=== PATIENT | female | born 1950 | race Hispanic/Latino ===

== ENCOUNTER → 2018-08-15 | Outpatient (CLI) | payer OTHER | END | disposition home or self-care (01) | LOC: OIH 09:10 | PROVIDERS: ATTEND Internal Medicine | DX: I10 Essential (primary) hypertension (principal); I70.0 Atherosclerosis of aorta; M47.815 Spondylosis without myelopathy or radiculopathy, thoracolumbar region | CPT/HCPCS: 71046 ==

== ENCOUNTER → 2019-08-06 | Outpatient (CLI) | payer OTHER | END | disposition home or self-care (01) | LOC: OIH 08:23 | PROVIDERS: ATTEND Internal Medicine | DX: M24.812 Other specific joint derangements of left shoulder, not elsewhere classified (principal) | CPT/HCPCS: 73030 ==

== ENCOUNTER → 2025-02-09 | Outpatient (CLI) | payer OTHER ==
--- NOTE | 2025-02-09 17:16 | HMCIMG ---
CLINICAL INFORMATION Left knee pain COMPARISON None. TECHNIQUE 2 view left knee FINDINGS Bones: No acute fracture. No destructive osseous abnormality. Alignment: Normal. Joints: Mild tricompartmental degenerative changes of osteoarthritis are present. Effusion: None Soft Tissues: Normal. IMPRESSION Mild tricompartmental osteoarthritis. No acute bony findings. /[place]
== END | disposition home or self-care (01) ==
LOC: RAH 15:46
PROVIDERS: ATTEND Internal Medicine
DX: T24.422A Corrosion of unspecified degree of left knee, initial encounter (principal); M17.12 Unilateral primary osteoarthritis, left knee; L03.116 Cellulitis of left lower limb; Y93.89 Activity, other specified; Y92.89 Other specified places as the place of occurrence of the external cause; Y99.8 Other external cause status
CPT/HCPCS: 73560